=== PATIENT | male | born 1930 | race Caucasian/White ===

== ENCOUNTER 2017-04-29 11:26 | Inpatient (IN) | payer MEDICARE ==
[~2017-04-29] VITALS: Ht 165.1 cm; Wt 63.1 kg
[2017-04-29] VITALS (547 sets, daily range): BP systolic 108–137; BP diastolic 56–68; PULSE 105–114; TEMP 97.2–98.1; O2SAT 80–99
[~2017-04-29 11:26] MED LIST: ASPRIN; CO Q-1010 M1 PO; CRESTOR5 MG PO; FISH OIL1000 MG PO; HYDROCHLOR50 MG PO; IBUPROFEN200 M1 PO; LIPITOR40 MG PO; NORCO 325 MG-51 TAB PO; PLAVIX 75MG TAB75 MG PO; SUPER EPA 1201200 MG PO; TOPROL XL100 MG PO; TYLENOL 500MG500 MG PO; VITAMIN B-1000 MCG/T PO; VITAMIN D 1001000 IU PO; [UNRECOGNIZED DRUG - CODE] PO
[2017-04-29 12:22] LABS: HEMATOCRIT 37.5 % (42.0-52.0); MEAN CELL VOLUME 90 fl (80.0-100.0); MEAN CORPUSCULAR HEMOGLOBIN 31 pg (27.0-31.0); MEAN CORPUSCULAR HGB CONC 35 g/dl (33.0-37.0); MEAN PLATELET VOLUME 11.3 fl (7.4-10.4); PLATELET COUNT 264 K/mm3 (130-400); RED BLOOD COUNT 4.19 M/mm3 (4.20-5.60); REDCELL DISTRIBUTION WIDTH-CV 13.5 % (11.5-14.5)
[2017-04-29 12:23] LABS: INR 1.3 (0.8-3.0)
[2017-04-29 12:24] LABS: ADD PATHOLOGY DIFF REVIEW NO; WHITE BLOOD COUNT 23.3 K/mm3 (4.8-10.8)
[2017-04-29 12:26] LABS: PARTIAL THROMBOPLASTIN TIME 33.7 SECONDS (26.0-37.0)
[2017-04-29 12:31] LABS: LACTIC ACID 1.3 mmol/L (0.4-2.0)
[2017-04-29 12:35] LABS: ADJUSTED CALCIUM 11.1 mg/dL (8.4-10.2); ALBUMIN 3.2 gm/dL (3.5-5.0); BILIRUBIN,TOTAL 2.1 mg/dL (0.0-1.0); CALCIUM 10.5 mg/dL (8.4-10.2); MAGNESIUM 2.9 mg/dL (1.6-2.3); TOTAL PROTEIN 6.1 gm/dL (6.4-8.2)
[2017-04-29 12:41] LABS: CREATININE, serum 16.08 mg/dL (0.66-1.25); POTASSIUM 6.1 mmol/L (3.4-5.0)
[2017-04-29 12:42] LABS: TROPONIN-I 0.032 ng/mL (0.000-0.034)
[2017-04-29 13:14] LABS: BAND 5 % (0-10); NEUTROPHILS 91 % (42.0-75.2); PLATELET ESTIMATE NORMAL (NORMAL); TOTAL CELLS COUNTED 100
[2017-04-29 13:22] LABS: C-REACTIVE PROTEIN 29.3 mg/dL (0.0-0.9)
[2017-04-29 13:26] LABS: PH 5 (5-8); SQUAMOUS EPITHELIAL None Seen /hpf; URINE APPEARANCE Hazy; URINE BACTERIA Rare /hpf; URINE BILIRUBIN Negative (NEGATIVE); URINE BLOOD 3+ (NEGATIVE); URINE COLOR Yellow; URINE GLUCOSE Negative (NEGATIVE); URINE KETONE Negative (NEGATIVE); URINE RBC >50 /hpf; URINE UROBILINOGEN Negative (NEGATIVE)
[2017-04-29 13:28] LABS: URINE WBC >50 /hpf
[2017-04-29] MEDS ORDERED: ASPIRIN 81M81 MG/TA2 PO (14:49)
[2017-04-29] MEDS ORDERED: COENZYME Q-10100 M1 PO (14:52)
[2017-04-29] MEDS ORDERED: HYZAAR 50-12.1 UDTAB PO (15:00)
[2017-04-29 15:35] LABS: CALCIUM 9.6 mg/dL (8.4-10.2); POTASSIUM 5.2 mmol/L (3.4-5.0)
[2017-04-29 15:44] LABS: CREATININE, serum 13.26 mg/dL (0.66-1.25)
[2017-04-29 18:19] LABS: HEMOGLOBIN A1C 5.5 %
[2017-04-29 18:51] LABS: PSA-TOTAL 4.4 ng/mL (0-4)
[2017-04-29 21:42] LABS: ALBUMIN 2.3 gm/dL (3.5-5.0); CALCIUM 8.6 mg/dL (8.4-10.2); PHOSPHOROUS 6.8 mg/dL (2.5-4.5); POTASSIUM 3.7 mmol/L (3.4-5.0)
[2017-04-29 21:43] LABS: CREATININE, serum 8.46 mg/dL (0.66-1.25)
[2017-04-30] VITALS (627 sets, daily range): BP systolic 108–130; BP diastolic 41–68; PULSE 86–109; TEMP 97.5–98.6; O2SAT 74–97
[2017-04-30 03:55] LABS: ALBUMIN 2.3 gm/dL (3.5-5.0); CALCIUM 8.8 mg/dL (8.4-10.2); PHOSPHOROUS 5.2 mg/dL (2.5-4.5); POTASSIUM 3.9 mmol/L (3.4-5.0)
[2017-04-30 04:30] LABS: CREATININE, serum 5.62 mg/dL (0.66-1.25)
[2017-04-30 09:31] LABS: ALBUMIN 2.2 gm/dL (3.5-5.0); CALCIUM 8.8 mg/dL (8.4-10.2); PHOSPHOROUS 4.2 mg/dL (2.5-4.5); POTASSIUM 3.8 mmol/L (3.4-5.0)
[2017-04-30 09:53] LABS: CREATININE, serum 3.98 mg/dL (0.66-1.25)
[2017-04-30 19:03] LABS: ALBUMIN 2.3 gm/dL (3.5-5.0); CALCIUM 8.8 mg/dL (8.4-10.2); CREATININE, serum 2.19 mg/dL (0.66-1.25); MAGNESIUM 1.6 mg/dL (1.6-2.3); PHOSPHOROUS 2.9 mg/dL (2.5-4.5); POTASSIUM 4.3 mmol/L (3.4-5.0)
[2017-05-01 02:49] VITALS: BP 134/50; PULSE 96; TEMP 98.6
[2017-05-01 03:04] LABS: ALBUMIN 2.1 gm/dL (3.5-5.0); CALCIUM 8.6 mg/dL (8.4-10.2); CREATININE, serum 1.63 mg/dL (0.66-1.25); MAGNESIUM 1.6 mg/dL (1.6-2.3); PHOSPHOROUS 2.6 mg/dL (2.5-4.5); POTASSIUM 4.3 mmol/L (3.4-5.0)
[2017-05-01 07:48] VITALS: BP 132/54; PULSE 92; TEMP 97.9
[2017-05-01 09:23] LABS: ALBUMIN 2.3 gm/dL (3.5-5.0); CALCIUM 8.7 mg/dL (8.4-10.2); CREATININE, serum 1.35 mg/dL (0.66-1.25); PHOSPHOROUS 2.3 mg/dL (2.5-4.5); POTASSIUM 3.9 mmol/L (3.4-5.0)
[2017-05-01 11:23] VITALS: BP 116/51; PULSE 87; TEMP 97.7
[2017-05-01 15:44] VITALS: BP 120/55; PULSE 90; TEMP 97.4
[2017-05-01 16:00] LABS: CALCIUM 8.3 mg/dL (8.4-10.2); CREATININE, serum 1.17 mg/dL (0.66-1.25); PHOSPHOROUS 2.3 mg/dL (2.5-4.5); POTASSIUM 4.2 mmol/L (3.4-5.0)
[2017-05-01 19:49] VITALS: BP 116/50; PULSE 92; TEMP 98
[2017-05-01 21:30] LABS: ALBUMIN 2.1 gm/dL (3.5-5.0); CALCIUM 8.2 mg/dL (8.4-10.2); CREATININE, serum 1.09 mg/dL (0.66-1.25); PHOSPHOROUS 2.2 mg/dL (2.5-4.5)
[2017-05-01 22:54] VITALS: BP 132/52; PULSE 87; TEMP 98.4
[2017-05-02 03:23] VITALS: BP 135/55; PULSE 90; TEMP 97.4
[2017-05-02 07:39] VITALS: BP 141/61; PULSE 93; TEMP 98.4
[2017-05-02 07:46] LABS: MAGNESIUM 1.5 mg/dL (1.6-2.3); POTASSIUM 4.1 mmol/L (3.4-5.0)
[2017-05-02] MEDS ORDERED: LEVAQUIN 2250 MG/TAB PO (10:38)
[2017-05-02 11:21] VITALS: BP 114/58; PULSE 86; TEMP 98.6
== END 2017-05-02 17:27 | disposition home health service (06) | DRG 683 ==
LOC: COL.ER 11:26 → ICU 13:27 → MEDICAL 13:27
PROVIDERS: Emergency Medicine; Internal Medicine Nephrology
DX: N17.9 Acute kidney failure, unspecified (principal); N39.0 Urinary tract infection, site not specified; N13.8 Other obstructive and reflux uropathy; Z66 Do not resuscitate; I10 Essential (primary) hypertension; Z87.891 Personal history of nicotine dependence; E87.5 Hyperkalemia; N40.1 Benign prostatic hyperplasia with lower urinary tract symptoms; I25.10 Atherosclerotic heart disease of native coronary artery without angina pectoris; F43.21 Adjustment disorder with depressed mood
CPT/HCPCS: A4315; G0103; J1956; J2270; J2405; J3475; J7030

== ENCOUNTER 2017-05-17 12:51 | Observation (INO) | payer MEDICARE ==
[~2017-05-17] VITALS: Ht 170.2 cm; Wt 60.7 kg
[2017-05-17] VITALS (9 sets, daily range): BP systolic 103–121; BP diastolic 43–75; PULSE 74–102; TEMP 98.2
[~2017-05-17 12:51] MED LIST changes: +ASPIRIN 81M81 MG/TA2 PO; +COENZYME Q-10100 M1 PO; +HYZAAR 50-12.1 UDTAB PO; +LEVAQUIN 2250 MG/TAB PO
[2017-05-18 01:52] VITALS: BP 109/50; PULSE 96; TEMP 97.5
[2017-05-18 05:40] VITALS: BP 122/55; PULSE 82; TEMP 98.3
[2017-05-18 07:51] LABS: MEAN CELL VOLUME 98 fl (80.0-100.0); MEAN CORPUSCULAR HGB CONC 32 g/dl (33.0-37.0); MEAN PLATELET VOLUME 11.5 fl (7.4-10.4); PLATELET COUNT 120 K/mm3 (130-400); RED BLOOD COUNT 3.12 M/mm3 (4.20-5.60); REDCELL DISTRIBUTION WIDTH-CV 14.6 % (11.5-14.5); WHITE BLOOD COUNT 8.6 K/mm3 (4.8-10.8)
[2017-05-18 07:52] LABS: HEMATOCRIT 30.7 % (42.0-52.0); HEMOGLOBIN 9.8 g/dl (13.5-18.0); MEAN CORPUSCULAR HEMOGLOBIN 31 pg (27.0-31.0)
[2017-05-18 09:23] VITALS: BP 127/54; PULSE 88
[2017-05-18 13:21] VITALS: BP 114/52; PULSE 47; TEMP 97.6
[2017-05-18 17:17] VITALS: BP 125/43; PULSE 82; TEMP 97.6
[2017-05-18 22:36] VITALS: BP 111/40; PULSE 81; TEMP 97.3
[2017-05-19 01:05] VITALS: BP 118/46; PULSE 85; TEMP 98.2
[2017-05-19 05:12] VITALS: BP 124/56; PULSE 77; TEMP 97.7
[2017-05-19 09:33] VITALS: BP 140/55; PULSE 85; TEMP 98.6
[2017-05-19 14:29] VITALS: BP 150/65; PULSE 77; TEMP 98.5
== END 2017-05-19 15:37 | disposition home or self-care (01) ==
LOC: SDCO 12:51 → SURG 17:35 → SDCO 05-18 10:00 → SURG 05-18 10:00
PROVIDERS: Urology
DX: N40.1 Benign prostatic hyperplasia with lower urinary tract symptoms (principal); R33.8 Other retention of urine; R39.12 Poor urinary stream; R39.14 Feeling of incomplete bladder emptying; E43 Unspecified severe protein-calorie malnutrition; R63.4 Abnormal weight loss; Z87.891 Personal history of nicotine dependence; I25.10 Atherosclerotic heart disease of native coronary artery without angina pectoris; I10 Essential (primary) hypertension; I73.9 Peripheral vascular disease, unspecified; Z95.0 Presence of cardiac pacemaker; Z80.9 Family history of malignant neoplasm, unspecified; E78.5 Hyperlipidemia, unspecified; M25.50 Pain in unspecified joint; Z79.01 Long term (current) use of anticoagulants; N28.1 Cyst of kidney, acquired
CPT/HCPCS: OP; C1769; G0378; J0690; J1100; J2250; J2405; J2704; J7120